=== PATIENT | male | born 1955 | race African-American/Black ===

== ENCOUNTER 2018-11-01 15:18 | Emergency (ER) | payer SELFPAY ==
--- NOTE | 2018-11-01 15:26 | PDOC ---
Rapid Medical Evaluation Time Seen by Provider: 11/01/18 15:21 Medical Evaluation: 11/01/18 15:21 The patient is a 63 y/o M who presents to the ER with dementia, diabetes, HTN, for a medication refill. He states that he is unable to get his medications because his is home and she has an order of protection against him. Medications: Metformin 500mg BID, Losartan, unsure of dose, possible dementia meds? Uses [facility] in [facility]. Exam: NAD, ambulatory Orders: Nothing Pt to proceed to the ER for further evaluation Discharge Disposition - Diagnosis Medication refill - Referrals - Patient Instructions - Post Discharge Activity
[2018-11-01 15:52] VITALS: BP 112/79; PULSE 89; TEMP 98.6; BMI 27.8
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
[2018-11-01] MEDS ORDERED: metFORMIN HCL 500 MG TABLET (FP) PO ONE (16:21)
[2018-11-01] MEDS ORDERED: metFORMIN HCL 500 MG TABLET (FP) ONE (16:30)
== END 2018-11-01 16:48 | disposition home or self-care (01) ==
LOC: JER 15:18
DX: Z76.0 Encounter for issue of repeat prescription (principal); I10 Essential (primary) hypertension; F17.210 Nicotine dependence, cigarettes, uncomplicated
CPT/HCPCS: 82962; 99281-25